=== PATIENT | male | born 1990 | race Caucasian/White ===

== ENCOUNTER → 2020-03-03 | Outpatient (CLI) | payer OTHER ==
[~2020-03-03] MED LIST: ACET-1600 PO; IBUP-1223 PO
[2020-03-03 09:58] LABS: BASOPHILS % (AUTO) 0 % (0-1); EOSINOPHILS % (AUTO) 1 % (1-7); LYMPHOCYTES % (AUTO) 27 % (22-44); MD NO; MEAN CORPUSCULAR HEMOGLOBIN 32.7 pg (27.5-34.5); MEAN CORPUSCULAR HGB CONC 34.9 g/dL (33.2-36.2); MEAN PLATELET VOLUME 8.3 fL (7.4-10.4); MONOCYTES % (AUTO) 7 % (2-9); NEUTROPHILS % (AUTO) 65 % (42-75); PLATELET COUNT 306 x10^3/uL (130-400); RED BLOOD COUNT 5.38 x10^6/uL (4.38-5.82); RED CELL DISTRIBUTION WIDTH 12.9 % (9.4-14.8)
[2020-03-03 10:04] LABS: INTERNATIONAL NORMALIZED RATIO 1.01 (0.93-1.1); PROTHROMBIN TIME 10.7 Seconds (9.6-11.5)
[2020-03-03 10:06] LABS: ANION GAP 6 mmol/L (5-15); CALCIUM 9.2 mg/dL (8.5-10.1); CHLORIDE 109 mmol/L (98-107)
[2020-03-03 10:11] LABS: ALANINE AMINOTRANSFERASE 64 U/L (12-78); ALKALINE PHOSPHATASE 71 U/L (45-117); BILIRUBIN,TOTAL 0.5 mg/dL (0.2-1.0); CREATININE 1.11 mg/dL (0.7-1.3); TOTAL PROTEIN 7.7 g/dL (6.4-8.2)
[2020-03-03 10:17] LABS: MICROSCOPIC NOT IND
[2020-03-03 10:21] LABS: HCT (SEDRATE) 49.7 % (39.2-51.8)
== END | disposition home or self-care (01) ==
LOC: STAR 08:41
PROVIDERS: ATTEND Orthopaedic Surgery Orthopaedic Surgery of the Spine
DX: Z01.812 Encounter for preprocedural laboratory examination (principal); Z20.828 Contact with and (suspected) exposure to other viral communicable diseases; M54.16 Radiculopathy, lumbar region
CPT/HCPCS: 71046; 80053; 80074; 81003; 85025; 85610; 85651; 85730; 87635; 87806; 93005; G0475

== ENCOUNTER 2020-03-09 07:11 | Day surgery (SDC) | payer OTHER ==
[~2020-03-09] VITALS: Ht 172.7 cm; Wt 92.9 kg
[2020-03-09] MEDS ORDERED: LIDOCAINE/PF 1%, 30ML ONE (07:18)
[2020-03-09] MEDS ORDERED: BUPIVACAINE/PF 0.5% ONE (07:18)
[2020-03-09] MEDS ORDERED: BACITRACIN 50,000 UNIT ONE (07:19)
[2020-03-09] MEDS ORDERED: EPINEPHRINE 1 MG/ML, 1ML ONE (07:19)
[2020-03-09] MEDS ORDERED: CELE200C PO (07:49)
[2020-03-09] MEDS ORDERED: GABA-827 PO (07:49)
[2020-03-09] MEDS ORDERED: CHLORHEXIDINE 15 ML UDC MM ONE (08:00)
[2020-03-09] MEDS ORDERED: LACTATED RINGERS 1,000 ML IV SCH (08:00)
[2020-03-09] MEDS ORDERED: FENTANYL PF 250 MCG/5ML ONE (09:43)
[2020-03-09] MEDS ORDERED: MIDAZOLAM 1 MG/ML, 2ML ONE (09:43)
[2020-03-09] MEDS ORDERED: DEXAMETHASONE 4 MG/ML, 1ML ONE (09:45)
[2020-03-09] MEDS ORDERED: GLYCOPYRROLATE 0.2MG/1ML, 5ML ONE (09:45)
[2020-03-09] MEDS ORDERED: NEOSTIGMINE 1 MG/ML, 10ML ONE (09:45)
[2020-03-09] MEDS ORDERED: KETOROLAC 30 MG/1 ML ONE (09:45)
[2020-03-09] MEDS ORDERED: ROCURONIUM 10 MG/ML,10ML ONE (09:45)
[2020-03-09] MEDS ORDERED: ONDANSETRON 2MG/ML, 2ML ONE (09:45)
[2020-03-09] MEDS ORDERED: PROPOFOL 10 MG/ML, 20ML ONE (09:45)
[2020-03-09] MEDS ORDERED: CEFAZOLIN 1,000 MG ONE (09:45)
[2020-03-09] MEDS ORDERED: GENTAMICIN 80 MG/2 ML ONE (10:04)
[2020-03-09] MEDS ORDERED: ONDANSETRON 2MG/ML, 2ML IVPush PRN (11:30)
[2020-03-09] MEDS ORDERED: ACETAMINOPHEN 325 MG TABLET PO PRN (11:30)
[2020-03-09] MEDS ORDERED: PROMETHAZINE 25 MG/ML, 1ML IVPush PRN (11:30)
[2020-03-09] MEDS ORDERED: FENTANYL PF 100 MCG/2ML IV PRN (11:30)
[2020-03-09] MEDS ORDERED: OXYcodone 5 MG/5 ML ORAL.SOL UDC PO PRN (11:30)
[2020-03-09] MEDS ORDERED: HYDROmorphone 1 MG/ML, 1ML INJ IVPush PRN (11:30)
[2020-03-09] MEDS ORDERED: DIPHENHYDRAMINE 50 MG/ML, 1ML IVPush PRN (11:30)
[2020-03-09] MEDS ORDERED: MEPERIDINE/PF 25MG/0.5ML IVPush PRN (11:30)
== END 2020-03-09 13:30 | disposition home or self-care (01) ==
LOC: OUT 07:11
PROVIDERS: ATTEND Orthopaedic Surgery Orthopaedic Surgery of the Spine
DX: M51.17 Intervertebral disc disorders with radiculopathy, lumbosacral region (principal); M47.27 Other spondylosis with radiculopathy, lumbosacral region; Z88.8 Allergy status to other drugs, medicaments and biological substances
CPT/HCPCS: 63030; 72100; J0171; J0690; J1100; J1580; J1885; J2250; J2405; J2704; J2710; J3010; J7120